=== PATIENT | male | born 1985 | race Caucasian/White ===

== ENCOUNTER 2021-02-18 09:18 | Day surgery (SDC) | payer OTHER ==
[~2021-02-18 09:18] MED LIST: LACTATED RINGERS 1,000 ML IV SCH; LIDOCAINE 1% (10MG/ML) FOR IV START INTRADERMA PRN
[2021-02-18 09:41] VITALS: TEMP 97.6
[2021-02-18] MEDS ORDERED: fentaNYL (PF) 50 MCG/ML 2 ML AMP ONE (11:01)
[2021-02-18] MEDS ORDERED: PROPOFOL 10 MG/ML 20 ML VIAL IV ONE (11:01)
[2021-02-18] MEDS ORDERED: MIDAZOLAM 2 MG/2 ML VIAL ONE (11:01)
[2021-02-18] MEDS ORDERED: LIDOCAINE 1% INJ 10MG/ML (20 ML MDV) ONE (11:01)
[2021-02-18 11:40] VITALS: RESP 16
--- NOTE | 2021-02-18 11:41 | P.PCN ---
Date of Procedure: 02/18/21 Description of Procedure: Brief history: Patient is a pleasant 36-year-old male presenting for outpatient esophagogastroduodenoscopy and colonoscopy for evaluation of GERD and screening for colon cancer. Patient reports a long-standing history of GERD. Currently he is on omeprazole therapy. Symptoms well controlled on omeprazole however he will have breakthrough symptoms of pain this is a medication. He reports colon cancer in his grandparent. He also states that previously he was told he had colitis and needed a colonoscopy. Procedure performed: Esophagogastroduodenoscopy with biopsy Colonoscopy with biopsy Estimated blood loss: Minimal. Preoperative diagnosis: GERD, screening for malignant neoplasm of the colon, he reports family history of colon cancer Anesthesia: MAC Procedure: After informed consent was obtained from the patient was brought into the endoscopy unit and IV sedation was administered by anesthesia under continuous monitoring. Initially upper endoscopy was done. The Olympus GF 190 video endoscope was inserted into the mouth and esophagus intubated without any difficulty and was gradually advanced into the stomach and duodenum and carefully examined. The bulb and second part of the duodenum appeared normal, with biopsies taken to rule out celiac sprue. The scope was then withdrawn into the stomach adequately insufflated with air and upon careful examination the antrum and body, cardia and fundus appeared normal, except for some mild punctate erythema suggestive of mild gastritis with biopsies. The scope was then withdrawn into the esophagus. The GE junction was located at 38 cm to the incisors. It appeared regular with no erythema erosions or ulcerations, with lower esophageal biopsies taken. Rest of the esophagus appeared normal. Patient tolerated the procedure well. At this time the patient continued to remain sedation. Initial digital rectal examination was normal. Olympus CF 190 video colonoscope was then inserted into the rectum and gradually advanced to the cecum without any difficulty. Careful examination was performed as the scope was gradually being withdrawn. The prep was excellent. The cecum, ascending colon, transverse colon, descending colon, sigmoid colon and rectum appeared normal, with random biopsies taken of the right and left colon due to patient's reported history of colitis. The terminal ileum was intubated and appeared normal with biopsies taken. Retroflexion was performed in the rectum and no lesions were noted. Patient tolerated the procedure well. Impression: 1. Mild gastritis. Biopsies of the duodenum, antrum body and lower esophagus. 2. Normal-appearing colon from rectum to cecum and normal-appearing terminal ileum with random biopsies taken of the right colon, left colon and terminal ileum. Recommendations: Findings of this examination were discussed with the patient as well as his family. Okay to resume diet. Okay to resume medications. Await pathology from biopsies. Can repeat colonoscopy in 5 years for family history of colon cancer.
[2021-02-18 11:56] VITALS: BP 117/76; PULSE 61
== END 2021-02-18 12:52 | disposition home or self-care (01) ==
LOC: ORWHC2ENDO 09:18
PROVIDERS: ATTEND Internal Medicine
DX: K21.9 Gastro-esophageal reflux disease without esophagitis (principal); Z12.11 Encounter for screening for malignant neoplasm of colon; D72.820 Lymphocytosis (symptomatic); K29.50 Unspecified chronic gastritis without bleeding; Z80.0 Family history of malignant neoplasm of digestive organs
CPT/HCPCS: 45380; 43239; J2250; J2001; J3010; J2704; 88305; 88342

== ENCOUNTER 2024-09-27 19:29 | Observation (INO) | payer OTHER ==
[2024-09-27 21:00] LABS: Basophils % (A) 1 %; Eosinophils % (A) 0 %; HCT 46.1 % (39.0-53.0); HGB 16.1 gm/dL (13.0-17.5); Lymphocytes % (A) 45 %; MCH 30.9 pg (25.0-35.0); MCV 88.3 fL (80.0-100.0); Mean Platelet Volume 9.5; Monocytes # (A) 0.4 k/uL (0-1.0); Monocytes % (A) 10 %; Neutrophils % (A) 43 %; Platelet Count 176 k/uL (150-450); RBC 5.23 m/uL (4.30-5.90); RDW 12.3 % (11.5-15.5); WBC 4.6 k/uL (3.8-10.6)
[2024-09-27 21:03] LABS: ALT 76 U/L (4-49); AST 51 U/L (17-59); African American GFR (CKD) >90 (>60 ml/min/1.73 sqM); Albumin 4.7 g/dL (3.5-5.0); Alkaline Phosphatase 78 U/L (38-126); Amylase 54 U/L (30-110); Anion Gap 12 mmol/L; Blood Urea Nitrogen 16 mg/dL (9-20); Carbon Dioxide 28 mmol/L (22-30); Chloride 98 mmol/L (98-107); Glucose 81 mg/dL (74-99); Lipase 220 U/L (23-300); Non-African American GFR(CKD) >90 (>60 ml/min/1.73 sqM); Potassium 4.1 mmol/L (3.5-5.1); Sodium 138 mmol/L (137-145); Total Bilirubin 0.8 mg/dL (0.2-1.3); Total Protein 7.7 g/dL (6.3-8.2)
--- NOTE | 2024-09-27 21:34 | CT ---
EXAMINATION TYPE: CT abdomen pelvis w con DATE OF EXAM: 09/27/2024 9:02 PM COMPARISON: CT abdomen pelvis most recent from 09/13/2024 CLINICAL INDICATION: Male, 39 years old with history of rlq pain. eval for appendicitis; RLQ abdomina l pain x 1 week. hx of appenciditis 1 week ago, tried antibiotics to solve it TECHNIQUE: Axial CT abdomen pelvis w con;Sagittal and coronal reformats were created on a separate w orkstation. Contrast used:100ml mL of Isovue 300 with IV Contrast, (none if empty) Oral contrast used: without Oral Contrast (none if empty) CT DLP: 1317.1 mGycm, Automated exposure control for dose reduction was used. FINDINGS: LOWER CHEST: Unremarkable ABDOMEN LIVER: Diffusely hypoattenuating parenchyma. GALLBLADDER AND BILE DUCTS: Unremarkable. PANCREAS: Unremarkable. SPLEEN: Unremarkable. ADRENAL GLANDS: Unremarkable. KIDNEYS AND URETERS: Multiple bilateral nonobstructing calculi measuring up to 3 mm. PELVIS BLADDER: No evidence for wall thickening or mass given limitations of exam. REPRODUCTIVE: Unremarkable. ABDOMEN & PELVIS STOMACH AND BOWEL: Small hiatal hernia, duodenum is unremarkable No evidence of bowel obstruction. De crease in inflammation around the apex on today's exam compared to 09/13/2024 PERITONEUM/RETROPERITONEUM: No evidence of pneumoperitoneum or free fluid. VASCULATURE: No evidence of aortic aneurysm. MUSCULOSKELETAL: No acute osseous abnormalities LYMPH NODES: No gross evidence for lymphadenopathy. SOFT TISSUE/ABDOMINAL WALL: Unremarkable IMPRESSION: 1. Decrease in inflammation around the appendix. 2. No evidence for obstructive uropathy. Bilateral nonobstructing renal calculi. 3. . 4. Hepatic steatosis. [facility], , 09/27/2024 9:31 PM
[2024-09-27] MEDS: MORPHINE SULFATE 4 MG/ML SYRINGE IVP STA (21:51)
[2024-09-27] MEDS: SODIUM CHLORIDE 0.9% 1,000 ML IV STA (21:52)
[2024-09-27] MEDS ORDERED: MORPHINE SULFATE 4 MG/ML SYRINGE IV PRN (21:56)
[2024-09-27] MEDS ORDERED: ONDANSETRON 4 MG/2 ML VIAL IVP PRN ×2 (21:56→23:47)
[2024-09-27] MEDS ORDERED: NALOXONE 0.4 MG/ML 1 ML VIAL IV PRN (21:56)
--- NOTE | 2024-09-27 21:57 | ED ---
General Adult HPI - General Chief complaint: Abdominal Pain Stated complaint: Abd Pain Time Seen by Provider: 09/27/24 20:00 Source: patient, RN notes reviewed, old records reviewed Mode of arrival: ambulatory Limitations: no limitations - History of Present Illness Initial comments: Patient is a 39-year-old male who presents emergency department complaining of abdominal pain. Was recently seen in August 2024 a few weeks ago for acute appendicitis. No surgery at that time, as it was uncomplicated. Treated with IV antibiotics and then oral antibiotics at home. Was due to follow-up with his surgeon, Dr. Crawford in 1 week however patient states that over the last day or so has been having worsening right lower quadrant abdominal pain. Worse with flexion of the right leg as well as some tenderness on the left side with palpation. Endorses less of an appetite. Denies emesis. Denies diarrhea or constipation. Presents for further evaluation at this time. Believes his appendicitis is acting up. - Related Data Home Medications Medication Instructions Recorded Confirmed Ibuprofen [Advil] 200 - 400 mg PO Q6H PRN 02/14/21 09/13/24 Omeprazole 20 mg PO DAILY 02/14/21 09/13/24 Previous Rx's Medication Instructions Recorded Amoxic-Pot Clav 875-125Mg 1 tab PO Q12HR 7 Days #14 tab 09/14/24 [Augmentin 875-125] Allergies Allergy/AdvReac Type Severity Reaction Status Date / Time No Known Allergies Allergy Verified 09/27/24 19:59 Review of Systems ROS Statement: Those systems with pertinent positive or pertinent negative responses have been documented in the HPI. Review of Systems: CONST: Denies fever EYES: Denies blurry vision ENT: Denies nasal congestion C/V: Denies Chest pain RESP: Denies shortness of breath GI: Endorses right lower quadrant abdominal pain : Denies dysuria SKIN: Denies rash. MSK: Denies joint pain. NEURO: Denies headache ROS Other: All systems not noted in ROS Statement are negative. Past Medical History Past Medical History: GERD/Reflux, Sleep Apnea/CPAP/BIPAP Additional Past Medical History / Comment(s): UPPER GI BLEED POSSIBLE. USES CPAP, appendicitis History of Any Multi-Drug Resistant Organisms: None Reported Past Surgical History: No Surgical Hx Reported Additional Past Surgical History / Comment(s): ONLY DENTAL PROCEDURES. Right B icep reattached. Past Anesthesia/Blood Transfusion Reactions: No Reported Reaction Additional Past Anesthesia/Blood Transfusion Reaction / Comment(s): HAS NEVER HAD ANESTHESIA. Past Psychological History: Anxiety, Depression, PTSD Smoking Status: Former smoker Past Alcohol Use History: Rare Past Drug Use History: Marijuana General Exam - General Exam Comments Initial Comments: General: He is in mild to moderate distress. HEAD: Normal with no signs of head trauma. EYES: EOMI ENT: Hearing grossly intact, normal oropharynx. RESPIRATORY: Clear breath sounds bilaterally. No wheezes, rales, or rhonchi. C/V: Regular rate and rhythm. S1 and S2 auscultated, no edema, peripheral pulses 2+ and intact throughout ABD: Abdomen soft, nondistended. Tender to palpation in the right lower quadrant. Appears to have positive Rovsing sign as well as obturator sign. No guarding. No rebound tenderness. EXT: Normal range of motion, no obvious deformity SKIN: No rashes or lesions observed on exposed skin. NEURO: Alert and oriented x 4. Limitations: no limitations Course Vital Signs 09/27/24 19:59 Temperature 98.8 F Pulse Rate 82 Respiratory 18 Rate Blood Pressure 138/80 O2 Sat by Pulse 99 Oximetry Medical Decision Making - Medical Decision Making Was pt. sent in by a medical professional or institution (, PA, FOUNDER PRESIDENT [employer] CEO, urgent care, hospital, or penitentiary...) When possible be specific @ -No Did you speak to anyone other than the patient for history (EMS, parent, family, police, friend...)? What history was obtained from this source @ -No Did you review nursing and triage notes (agree or disagree)? Why? @ -I reviewed and agree with nursing and triage notes Were old charts reviewed (outside hosp., previous admission, EMS record, old EKG, old radiological studies, urgent care reports/EKG's, penitentiary records)? Report findings @ -Reviewed chart from August 2024 which did show patient had uncomplicated appendicitis that was treated medically with antibiotics. Differential Diagnosis (chest pain, altered mental status, abdominal pain women, abdominal pain men, vaginal bleeding, weakness, fever, dyspnea, syncope, headache, dizziness, GI bleed, back pain, seizure, CVA, palpatations, mental health, musculoskeletal)? @ -Differential Abdominal Pain Men: Appendicitis, cholecystitis, diverticulosis, ischemic bowel, pancreatitis, hepatitis, UTI, gastroenteritis, AAA, incarcerated hernia, bowel obstruction, constipation, inflammatory bowel, hepatitis, peptic ulcer disease, splenic infarction, perforated viscus, testicular torsion, this is not meant to be an all-inclusive list EKG interpreted by me (3pts min.). @ -None done X-rays interpreted by me (1pt min.). @ -None done CT interpreted by me (1pt min.). @ -CT abdomen pelvis today reveals no evidence of acute appendicitis. U/S interpreted by me (1pt. min.). @ -None done What testing was considered but not performed or refused? (CT, X-rays, U/S, labs)? Why? @ -None What meds were considered but not given or refused? Why? @ -None Did you discuss the management of the patient with other professionals (professionals i.e. , PA, FOUNDER PRESIDENT [employer] CEO, lab, RT, psych nurse, social group worker, senior software manager, teacher, certified juvenile probation officer, case management rn)? Give summary @ -Discussed with Dr. Regalado, on-call general surgeon who is covering for Dr. Crawford. Discussed that patient is clinically presenting as acute appendicitis and he requested patient be made n.p.o. and plans for appendectomy this evening. Patient will be admitted under his service. Was smoking cessation discussed for >3mins.? @ -No Was critical care preformed (if so, how long)? @ -No Were there social determinants of health that impacted care today? How? (Homelessness, low income, unemployed, alcoholism, drug addiction, transportation, low edu. Level, literacy, decrease access to med. care, residential, rehab)? @ -No Was there de-escalation of care discussed even if they declined (Discuss DNR or withdrawal of care, Hospice)? DNR status @ -No What co-morbidities impacted this encounter? (DM, HTN, Smoking, COPD, CAD, Cancer, CVA, ARF, Chemo, Hep., AIDS, mental health diagnosis, sleep apnea, morbid obesity)? @ -None Was patient admitted / discharged? Hospital course, mention meds given and route, prescriptions, significant lab abnormalities, going to OR and other pertinent info. @ -Based on the patient's presentation and physical exam, patient presents to the emergency department complaining of reoccurrence of appendicitis pain. Was receiving medical management but over the last day, symptoms have returned. Seems to have McBurney's point positive, Rovsing sign positive, as well as obturator sign positive. Patient was evaluated in the waiting room, and abdominal labs as well as CT ordered. Vitals are within acceptable limits. Laboratory studies unremarkable. CT does not show acute appendicitis. On reevaluation, patient clinically is presenting as acute appendicitis. With him recently being diagnosed with it less than a month ago and medically manage, I did contact the on-call surgeon who is covering for Dr. Crawford, Dr. Regalado who is in agreement and will take the patient to the operating room for appendectomy. Patient admitted to Dr. Regalado. Patient started on Zosyn. He was in agreement this plan. Undiagnosed new problem with uncertain prognosis? @ -No Drug Therapy requiring intensive monitoring for toxicity (Heparin, Nitro, Insulin, Cardizem)? @ -No Were any procedures done? @ -No Diagnosis/symptom? @ -Appendicitis Acute, or Chronic, or Acute on Chronic? @ -Acute Uncomplicated (without systemic symptoms) or Complicated (systemic symptoms)? @ -Complicated Side effects of treatment? @ -No Exacerbation, Progression, or Severe Exacerbation? @ -No Poses a threat to life or bodily function? How? (Chest pain, [place], VA, pneumonia, PE, COPD, DKA, ARF, appy, cholecystitis, CVA, Diverticulitis, Homicidal, Suicidal, threat to staff... and all critical care pts) @ -Possibly, yes - Lab Data Result diagrams: 09/27/24 20:14 09/27/24 20:14 Lab Results 09/27/24 09/27/24 09/27/24 Range/Units 20:14 20:14 21:26 WBC 4.6 (3.8-10.6) k/uL RBC 5.23 (4.30-5.90) m/uL Hgb 16.1 (13.0-17.5) gm/dL Hct 46.1 (39.0-53.0) % MCV 88.3 (80.0-100.0) fL MCH 30.9 (25.0-35.0) pg MCHC 35.0 (31.0-37.0) g/dL RDW 12.3 (11.5-15.5) % Plt Count 176 (150-450) k/uL MPV 9.5 Neutrophils % 43 % Lymphocytes % 45 % Monocytes % 10 % Eosinophils % 0 % Basophils % 1 % Neutrophils # 2.0 (1.3-7.7) k/uL Lymphocytes # 2.0 (1.0-4.8) k/uL Monocytes # 0.4 (0-1.0) k/uL Eosinophils # 0.0 (0-0.7) k/uL Basophils # 0.0 (0-0.2) k/uL Sodium 138 (137-145) mmol/L Potassium 4.1 (3.5-5.1) mmol/L Chloride 98 (98-107) mmol/L Carbon Dioxide 28 (22-30) mmol/L Anion Gap 12 mmol/L BUN 16 (9-20) mg/dL Creatinine 0.98 (0.66-1.25) mg/dL Est GFR (CKD-EPI)AfAm >90 (>60 ml/min/1.73 sqM) Est GFR (CKD-EPI)NonAf >90 (>60 ml/min/1.73 sqM) Glucose 81 (74-99) mg/dL Plasma Lactic Acid Tyler 0.8 (0.7-2.0) mmol/L Calcium 9.0 (8.4-10.2) mg/dL Total Bilirubin 0.8 (0.2-1.3) mg/dL AST 51 (17-59) U/L ALT 76 H (4-49) U/L Alkaline Phosphatase 78 (38-126) U/L Total Protein 7.7 (6.3-8.2) g/dL Albumin 4.7 (3.5-5.0) g/dL Amylase 54 (30-110) U/L Lipase 220 (23-300) U/L Disposition Clinical Impression: Appendicitis Disposition: ADMITTED IP TO THIS HOSP Condition: Stable Referrals: Rigoberto Michel DO [Primary Care Provider] - 1-2 days Time of Disposition: 21:57
--- NOTE | 2024-09-27 22:26 | P.GSHP ---
History of Present Illness H&P Date: 09/27/24 This is a 39 year old male who presents to [facility] ER with RLQ pain. He has associated nausea. He was recently diagnosed with appendicitis. At that time, he was treated conservatively with antibiotics and appeared to get better. However, today he presents with recurrent RLQ pain and the same symptoms as his previous appendicitis. He had a CT-AP which shows some inflammatory changes near his appendix. ROS Statement: Those systems with pertinent positive or pertinent negative responses have been documented in the HPI. ROS Other: All systems not noted in ROS Statement are negative. Past Medical History Past Medical History: GERD/Reflux, Sleep Apnea/CPAP/BIPAP Additional Past Medical History / Comment(s): UPPER GI BLEED POSSIBLE. USES CPAP, appendicitis History of Any Multi-Drug Resistant Organisms: None Reported Past Surgical History: No Surgical Hx Reported Additional Past Surgical History / Comment(s): ONLY DENTAL PROCEDURES. Right Bicep reattached. Past Anesthesia/Blood Transfusion Reactions: No Reported Reaction Additional Past Anesthesia/Blood Transfusion Reaction / Comment(s): HAS NEVER HAD ANESTHESIA. Past Psychological History: Anxiety, Depression, PTSD Smoking Status: Former smoker Past Alcohol Use History: Rare Past Drug Use History: Marijuana General Exam General-NAD CVS-RRR Lungs-NLB Abdomen-soft, TTP RLQ, guarding Ext-no edema 39 year old male with appendicitis -OR for Laparoscopic Appendectomy -NPO -Zosyn -IV fluids King Regalado [facility] [phone] Past Medical History Past Medical History: GERD/Reflux, Sleep Apnea/CPAP/BIPAP Additional Past Medical History / Comment(s): UPPER GI BLEED POSSIBLE. USES CPAP, appendicitis History of Any Multi-Drug Resistant Organisms: None Reported Past Surgical History: No Surgical Hx Reported Additional Past Surgical History / Comment(s): ONLY DENTAL PROCEDURES. Right Bic ep reattached. Past Anesthesia/Blood Transfusion Reactions: No Reported Reaction Additional Past Anesthesia/Blood Transfusion Reaction / Comment(s): HAS NEVER HAD ANESTHESIA. Past Psychological History: Anxiety, Depression, PTSD Smoking Status: Former smoker Past Alcohol Use History: Rare Past Drug Use History: Marijuana Medications and Allergies Home Medications Medication Instructions Recorded Confirmed Type Ibuprofen [Advil] 200 - 400 mg PO Q6H PRN 02/14/21 09/13/24 History Omeprazole 20 mg PO DAILY 02/14/21 09/13/24 History Amoxic-Pot Clav 875-125Mg 1 tab PO Q12HR 7 Days #14 tab 09/14/24 Rx [Augmentin 875-125] Allergies Allergy/AdvReac Type Severity Reaction Status Date / Time No Known Allergies Allergy Verified 09/27/24 19:59 Surgical - Exam Vital Signs Temp Pulse Resp BP Pulse Ox 98.8 F 82 18 138/80 99 09/27/24 19:59 09/27/24 19:59 09/27/24 19:59 09/27/24 19:59 09/27/24 19:59 Results - Labs 09/27/24 20:14 09/27/24 20:14 Abnormal Lab Results - Last 24 Hours (Table) 09/27/24 Range/Units 20:14 ALT 76 H (4-49) U/L Diabetes panel 09/27/24 Range/Units 20:14 Sodium 138 (137-145) mmol/L Potassium 4.1 (3.5-5.1) mmol/L Chloride 98 (98-107) mmol/L Carbon Dioxide 28 (22-30) mmol/L BUN 16 (9-20) mg/dL Creatinine 0.98 (0.66-1.25) mg/dL Glucose 81 (74-99) mg/dL Calcium 9.0 (8.4-10.2) mg/dL AST 51 (17-59) U/L ALT 76 H (4-49) U/L Alkaline Phosphatase 78 (38-126) U/L Total Protein 7.7 (6.3-8.2) g/dL Albumin 4.7 (3.5-5.0) g/dL Calcium panel 09/27/24 Range/Units 20:14 Calcium 9.0 (8.4-10.2) mg/dL Albumin 4.7 (3.5-5.0) g/dL Pituitary panel 09/27/24 Range/Units 20:14 Sodium 138 (137-145) mmol/L Potassium 4.1 (3.5-5.1) mmol/L Chloride 98 (98-107) mmol/L Carbon Dioxide 28 (22-30) mmol/L BUN 16 (9-20) mg/dL Creatinine 0.98 (0.66-1.25) mg/dL Glucose 81 (74-99) mg/dL Calcium 9.0 (8.4-10.2) mg/dL Adrenal panel 09/27/24 Range/Units 20:14 Sodium 138 (137-145) mmol/L Potassium 4.1 (3.5-5.1) mmol/L Chloride 98 (98-107) mmol/L Carbon Dioxide 28 (22-30) mmol/L BUN 16 (9-20) mg/dL Creatinine 0.98 (0.66-1.25) mg/dL Glucose 81 (74-99) mg/dL Calcium 9.0 (8.4-10.2) mg/dL Total Bilirubin 0.8 (0.2-1.3) mg/dL AST 51 (17-59) U/L ALT 76 H (4-49) U/L Alkaline Phosphatase 78 (38-126) U/L Total Protein 7.7 (6.3-8.2) g/dL Albumin 4.7 (3.5-5.0) g/dL
[2024-09-27] MEDS: PIPERACILLIN-TAZOBACTAM 3.375 GM in SODIUM CHLORIDE 0.9% 100 ML IVPB SCH (22:46)
[2024-09-27] MEDS: LIDOCAINE 1%-EPI 1:100,000 20 ML VIAL SQ ONE ×2 (22:49→23:24)
[2024-09-27] MEDS ORDERED: fentaNYL (PF) 50 MCG/ML 2 ML AMP ONE (23:00)
[2024-09-27] MEDS ORDERED: SUCCINYLCHOLINE CHLORIDE 200 MG/10 ML VIAL IV ONE (23:00)
[2024-09-27] MEDS ORDERED: HEPARIN SODIUM,PORCINE 5,000 UNIT/ML 1 ML VIAL ONE (23:00)
[2024-09-27] MEDS ORDERED: ROCURONIUM 10 MG/ML (5 ML VIAL) IV ONE (23:00)
[2024-09-27] MEDS ORDERED: LIDOCAINE 1% INJ 10MG/ML (20 ML MDV) ONE (23:00)
[2024-09-27] MEDS ORDERED: MIDAZOLAM 2 MG/2 ML VIAL ONE (23:00)
[2024-09-27] MEDS ORDERED: NEOSTIGMINE 1 MG/ML 10 ML VIAL ONE (23:00)
[2024-09-27] MEDS ORDERED: KETOROLAC 15 MG/ML 1 ML VIAL ONE (23:00)
[2024-09-27] MEDS ORDERED: GLYCOPYRROLATE 0.2 MG/ML 2 ML VIAL ONE (23:00)
[2024-09-27] MEDS ORDERED: PROPOFOL 10 MG/ML 20 ML VIAL IV ONE (23:00)
[2024-09-27] MEDS ORDERED: ONDANSETRON 4 MG/2 ML VIAL ONE (23:00)
[2024-09-27] MEDS: SODIUM CHLORIDE 0.9% 50 ML with ceFAZolin 2,000 MG IV ONE (23:03)
[2024-09-27] MEDS: SODIUM CHLORIDE 0.9% 1,000 ML IV ONE (23:03)
[2024-09-27 23:29] LABS: Appearance,Urine Clear (Clear); Bilirubin,Urine Negative (Negative); Blood,Urine Negative (Negative); Color,Urine Colorless; Glucose,Urine (UA) Negative (Negative); Ketones,Urine Negative (Negative); Leukocyte Esterase,Urine Negative (Negative); Nitrite,Urine Negative (Negative); Protein,Urine Negative (Negative); Urobilinogen,Urine <2.0 mg/dL (<2.0)
[2024-09-27] MEDS: LACTATED RINGERS 1,000 ML IV ONE (23:35)
[2024-09-27 23:38] LABS: Specific Gravity,Urine >1.050 (1.001-1.035)
--- NOTE | 2024-09-27 23:56 | P.OP ---
Date of Procedure: 09/27/24 Preoperative Diagnosis: Acute Appendicitis Postoperative Diagnosis: Acute Appendicitis Procedure(s) Performed: Laparoscopic Appendectomy Anesthesia: RAVINDRA Surgeon: King Regalado Estimated Blood Loss (ml): 10 Pathology: other (Appendix) Condition: stable Disposition: PACU Description of Procedure: The patient was seen by me in the preoperative holding area. The risks of the procedure were explained. He was taken to the operating room and given perioperative antibiotics prior to coming to the surgery. General anesthesia was carried out without difficulty and a Gilbert catheter was inserted. The left arm was tucked and the abdomen was prepped and draped in sterile fashion. A 5-mm blunt port was inserted infra-umbilically at the level of the umbilicus under direct vision of a 5-mm 0-degree laparoscope. Once we were inside the abdominal cavity, CO2 was instilled to attain an adequate pneumoperitoneum. A left lower quadrant 5-mm port was placed under direct vision and a 12-mm port at Cespedes's point. The 5-mm scope was introduced at the umbilical port and the appendix was easily visualized. The base of the cecum was acutely inflamed but not perforated. I then was easily able to grasp the mesoappendix and create a window between the base of the mesoappendix and the base of the appendix. The mesoappendix was taken down with a ligasure device. The window was big enough to get an Endo FLY purple 60 mm cartridge through it and fired across the base of the appendix without difficulty. I then placed the appendix in an Endobag and brought out through the 12 mm port without difficulty. I reinserted the 12 mm port and irrigated out the right lower quadrant until dry. One final inspection revealed no bleeding from the staple line. We then removed all ports under direct vision, and there was no bleeding from the abdominal trocar sites. The pneumoperitoneum was then deflated. The skin incisions were closed with 4-0 Monocryl suture. Skin glue was applied. There were no apparent complications. There was minimal blood loss. Patient was brought to the recovery room in stable condition.
[2024-09-28] MEDS: HYDROmorphone 0.5 MG/0.5 ML SYRINGE IVP STA (00:08)
[2024-09-28] MEDS: SODIUM CHLORIDE 0.9% 1,000 ML IV SCH (00:57)
[2024-09-28 01:53] LABS: Basophils % (A) 0 %; Eosinophils % (A) 0 %; HCT 40.6 % (39.0-53.0); HGB 13.3 gm/dL (13.0-17.5); Lymphocytes # (A) 1.3 k/uL (1.0-4.8); Lymphocytes % (A) 32 %; MCH 29.8 pg (25.0-35.0); MCHC 32.9 g/dL (31.0-37.0); MCV 90.7 fL (80.0-100.0); Mean Platelet Volume 8.4; Monocytes # (A) 0.3 k/uL (0-1.0); Monocytes % (A) 7 %; Neutrophils # (A) 2.4 k/uL (1.3-7.7); Neutrophils % (A) 59 %; Platelet Count 158 k/uL (150-450); RBC 4.48 m/uL (4.30-5.90); RDW 12.1 % (11.5-15.5)
[2024-09-28 01:57] LABS: ALT 62 U/L (4-49); AST 41 U/L (17-59); African American GFR (CKD) >90 (>60 ml/min/1.73 sqM); Albumin 3.7 g/dL (3.5-5.0); Alkaline Phosphatase 62 U/L (38-126); Anion Gap 9 mmol/L; Blood Urea Nitrogen 14 mg/dL (9-20); Calcium 8.2 mg/dL (8.4-10.2); Carbon Dioxide 24 mmol/L (22-30); Chloride 102 mmol/L (98-107); Glucose 98 mg/dL (74-99); Non-African American GFR(CKD) >90 (>60 ml/min/1.73 sqM); Potassium 3.8 mmol/L (3.5-5.1); Sodium 135 mmol/L (137-145); Total Bilirubin 0.5 mg/dL (0.2-1.3); Total Protein 6.2 g/dL (6.3-8.2)
[2024-09-28] MEDS: SODIUM CHLORIDE 0.9% 1,000 ML IV STA (06:21)
[2024-09-28 08:15] VITALS: BP 103/66; PULSE 92; RESP 17; TEMP 99.2
[2024-09-28] MEDS: HYDROmorphone 1 MG/ML 1 ML SYRINGE IVP PRN (08:56)
[2024-09-28] MEDS: PIPERACILLIN-TAZOBACTAM 3.375 GM in SODIUM CHLORIDE 0.9% 100 ML IVPB SCH (08:59)
--- NOTE | 2024-09-28 13:15 | P.DS ---
Providers Date of admission: 09/27/24 21:57 Expected date of discharge: 09/28/24 Attending physician: King Regalado DO Consults: 09/27/24 22:27 Consult Physician Routine Consulting Provider: Linda Garcia Consult Reason/Comments: Medical Management Do you want consulting provider notified?: Yes Primary care physician: Rigoberto [facility] Course: Discharge diagnosis 1. Acute appendicitis status post laparoscopic appendectomy Hospital course This is a 39-year-old male who presented with right lower quadrant abdominal pain.He was recently diagnosed with appendicitis. At that time, he was treated conservatively with antibiotics and appeared to get better. However, today he presents with recurrent RLQ pain and the same symptoms as his previous appendicitis. He had a CT-AP which shows some inflammatory changes near his appendix. Patient status post laparoscopic appendectomy for acute appendicitis. Patient tolerated surgery well. His pain is controlled. He is tolerating diet. He has been up and ambulating. He is afebrile. Patient is stable for discharge. Please refer to chart for any further details. Physician Nursing Tech note has been reviewed by physician. Signing provider agrees with the documented findings, assessment, and plan of care. Attestation Patient seen and examined at bedside on 09/28/2024. Presented with chief complaint of abdominal pain and found to have acute appendicitis. He did undergo laparoscopic appendectomy. Postoperatively his pain is controlled and he is tolerating diet. He is afebrile and is requesting discharge. Is reasonable for discharge with plan for outpatient antibiotics. Plan to follow- up in the surgery clinic within a few weeks. Wound care and activity instructions were provided. Dafne Reyes DO Patient Condition at Discharge: Stable Plan - Discharge Summary Discharge Rx Participant: No New Discharge Prescriptions: New HYDROcodone/APAP 5-325MG [[place] 5-325] 1 tab PO Q6HR PRN 3 Days #12 tab PRN Reason: Pain Amoxic-Pot Clav 500-125 mg [Augmentin 500-125 mg] 1 tab PO Q12HR #6 tab Continue Ibuprofen [Advil] 200 - 400 mg PO Q6H PRN PRN Reason: MIGRAINES Omeprazole 20 mg PO DAILY Discharge Medication List Ibuprofen [Advil] 200 - 400 mg PO Q6H PRN 02/14/21 [History] Omeprazole 20 mg PO DAILY 02/14/21 [History] Amoxic-Pot Clav 500-125 mg [Augmentin 500-125 mg] 1 tab PO Q12HR #6 tab 09/28/24 [Rx] HYDROcodone/APAP 5-325MG [[place] 5-325] 1 tab PO Q6HR PRN 3 Days #12 tab 09/28/24 [Rx] Follow up Appointment(s)/Referral(s): King Regalado DO [Medical Doctor] - 10/04/24 8:45 am Rigoberto Michel DO [Primary Care Provider] - 1-2 days Patient Instructions/Handouts: Laparoscopic Appendectomy (GEN) Activity/Diet/Wound Care/Special Instructions: No driving while taking [place] No lifting over 10 pounds You may shower. No soaking or tub baths for 2 weeks Very light activity until you are reevaluated at your follow up appointment with your surgeon Discharge Disposition: HOME SELF-CARE
[2024-09-28] MEDS: HYDROcodone/APAP 10-325MG 1 EACH TAB PO PRN (14:05)
--- NOTE | 2024-09-28 16:11 | P.CONS ---
History of Present Illness - Reason for Consult Consult date: 09/28/24 - Chief Complaint abdominal pain - History of Present Illness Hospital course This is a 31-year-old male no past medical history presents emergency department with right-sided lower quadrant abdominal pain. Underwent appendectomy with no complications. Medicine was consulted for medical management. Doing well, pain is well-managed at this time. Takes no home medications. Past Medical History Past Medical History: GERD/Reflux, Sleep Apnea/CPAP/BIPAP Additional Past Medical History / Comment(s): UPPER GI BLEED POSSIBLE. USES CPAP, History of Any Multi-Drug Resistant Organisms: None Reported Past Surgical History: No Surgical Hx Reported, Appendectomy Additional Past Surgical History / Comment(s): ONLY DENTAL PROCEDURES. Right Bicep reattached. Past Anesthesia/Blood Transfusion Reactions: No Reported Reaction Additional Past Anesthesia/Blood Transfusion Reaction / Comm: HAS NEVER HAD ANESTHESIA. Past Psychological History: Anxiety, Depression, PTSD Additional Psychological History / Comment(s): WAS IN [facility] A YEAR. Smoking Status: Former smoker Past Alcohol Use History: Rare Additional Past Alcohol Use History / Comment(s): QUIT 2013, ,5 PPD, Past Drug Use History: Marijuana Additional Drug Use History / Comment(s): USES MARIJUANA FOR PSTD Medications and Allergies Home Medications Medication Instructions Recorded Confirmed Type Ibuprofen [Advil] 200 - 400 mg PO Q6H PRN 02/14/21 09/28/24 History Omeprazole 20 mg PO DAILY 02/14/21 09/28/24 History Amoxic-Pot Clav 500-125 mg 1 tab PO Q12HR #6 tab 09/28/24 Rx [Augmentin 500-125 mg] HYDROcodone/APAP 5-325MG [[place] 1 tab PO Q6HR PRN 3 Days #12 tab 09/28/24 Rx 5-325] Allergies Allergy/AdvReac Type Severity Reaction Status Date / Time No Known Allergies Allergy Verified 09/27/24 19:59 Physical Exam Vitals: Vital Signs Temp Pulse Pulse Resp BP BP BP 09/28/24 08:00 92 17 09/28/24 07:49 09/28/24 07:00 99.2 F 92 17 103/66 09/28/24 02:30 56 L 99/64 09/28/24 02:00 65 09/28/24 01:30 58 L 96/56 09/28/24 01:07 51 L 100/64 09/28/24 00:40 98.8 F 67 18 125/71 09/28/24 00:30 65 14 112/60 09/28/24 00:22 70 14 113/60 09/28/24 00:07 70 14 113/57 09/27/24 23:52 75 14 116/58 09/27/24 22:55 78 16 116/72 09/27/24 19:59 98.8 F 82 18 138/80 Pulse Ox 09/28/24 08:00 09/28/24 07:49 98 09/28/24 07:00 98 09/28/24 02:30 98 09/28/24 02:00 09/28/24 01:30 97 09/28/24 01:07 97 09/28/24 00:40 93 L 09/28/24 00:30 95 09/28/24 00:22 98 09/28/24 00:07 91 L 09/27/24 23:52 98 09/27/24 22:55 98 09/27/24 19:59 99 Intake and Output 09/28/24 09/28/24 09/28/24 06:59 14:59 22:59 Intake Total 950 118 Output Total 5 Balance 945 118 Intake: IV 950 Oral 118 Output: Estimated Blood Loss 5 Other: Voiding Method Toilet Toilet Weight 102.058 kg - Constitutional General appearance: average body habitus, mild distress - EENT Eyes: PERRLA - Cardiovascular Rhythm: regular Heart sounds: normal: S1, S2 - Gastrointestinal General gastrointestinal: normal bowel sounds - Neurologic Neurologic: CNII-XII intact - Musculoskeletal Musculoskeletal: gait normal - Psychiatric Psychiatric: A&O x's 3, appropriate affect Results CBC & Chem 7: 09/28/24 01:32 09/28/24 01:32 Labs: Abnormal Lab Results - Last 24 Hours (Table) 09/27/24 09/27/24 09/28/24 Range/Units 20:14 23:00 01:32 Sodium 135 L (137-145) mmol/L Calcium 8.2 L (8.4-10.2) mg/dL ALT 76 H 62 H (4-49) U/L Total Protein 6.2 L (6.3-8.2) g/dL Ur Specific [place] >1.050 H (1.001-1.035) Assessment and Plan Assessment: Uncomplicated appendicitis status post appendectomy Mild pain control per primary IV fluid resuscitation when needed And related to early or possible Stable for discharge from medicine standpoint
== END 2024-09-28 15:08 | disposition home or self-care (01) ==
LOC: EC 19:29 → 6NMEDSUR 21:57
PROVIDERS: ADMIT Surgery; ATTEND Surgery
DX: K35.80 Unspecified acute appendicitis (principal); K21.9 Gastro-esophageal reflux disease without esophagitis; G47.30 Sleep apnea, unspecified; Z87.891 Personal history of nicotine dependence
CPT/HCPCS: 44970; 96374; 99285; 36415; 94760; 88304; 80053 ×2; 82150; 83605; 83690; 85025 ×2; 81003; 87040; 74177; G0378 ×2; J2543; J2250; J0330; J2270; J1644; J2710; J2405; J0690; J2003; J3010; J1171 ×2; J1885; J2704; Q9967; J1596

== ENCOUNTER → 2025-01-25 | Outpatient (CLI) | payer OTHER ==
--- NOTE | 2025-01-25 13:57 | CT ---
EXAMINATION TYPE: CT abdomen pelvis w con DATE OF EXAM: 01/25/2025 12:47 PM COMPARISON: 09/27/2024 CLINICAL INDICATION: Male, 39 years old with history of R10.9 abd/pel pain, PAIN IN RIGHT SIDE AFTER APPY TECHNIQUE:CT scan of the abdomen and pelvis is performed without Oral Contrast and with IV Contrast, patient injected with 100 ml mL of Isovue 300. CT DLP: 1700.80 mGycm, Automated exposure control for dose reduction was used. FINDINGS: LUNG BASES-: No visible nodule. No infiltrate. LIVER/GB: No calcified gallstones. Mild hepatic steatosis noted. No space occupying hepatic lesion . Biliary tree is of normal caliber. PANCREAS: No inflammation. No distinct mass. SPLEEN: No splenic enlargement. No lesion seen. ADRENALS: No nodule. No thickening. KIDNEYS/BLADDER: No hydronephrosis. Couple of 2 mm nonobstructing calculi right kidney. No distinct renal mass. Urinary bladder grossly unremarkable. BOWEL: Postappendectomy changes. No evidence for abscess or residual inflammatory change. No abnormal collection. Normal bowel caliber. No inflammation. GENITAL ORGANS: No gross abnormality. LYMPH NODES: No greater than 1cm abdominal or pelvic lymph nodes are appreciated. AORTA: No significant abnormality. OSSEOUS STRUCTURES: No significant abnormality is seen. OTHER: No significant additional abnormality is seen. IMPRESSION: 1. Postappendectomy changes. No evidence for abscess or residual inflammatory change. No abnormal col lection. 2. Hepatic steatosis. [facility] Monica Zheng, , 01/25/2025 1:55 PM
== END | disposition home or self-care (01) ==
LOC: RADCTMAIN 10:53
PROVIDERS: ATTEND Surgery
DX: K76.0 Fatty (change of) liver, not elsewhere classified (principal); Z90.89 Acquired absence of other organs
CPT/HCPCS: 74177; Q9967